=== PATIENT | male | born 1965 | race Caucasian/White ===

== ENCOUNTER 2020-12-31 08:34 | Day surgery (SDC) | payer MEDICARE, MEDICAID ==
[2020-12-31] MEDS ORDERED: Depo-Medrol 40 MG/ML IM ONE (08:35)
[2020-12-31] MEDS ORDERED: LIDOCAINE HCL 2% 100 MG/5 ML IJ ONE (08:35)
[2020-12-31] MEDS ORDERED: DIPRIVAN 200 MG/20 ML IV ONE (09:44)
--- NOTE | 2020-12-31 11:32 | XRAY ---
Indication: Bilateral L4-S1 MBB. Intraoperative fluoroscopy provided for 16 seconds. Single digital spot image submitted for interpretation demonstrates posterior needle tips projecting over the expected left and right L4-S1 nerve roots. Correlate with intraoperative findings/report. Incidental bilateral L4-S1 facet screws.
--- NOTE | 2020-12-31 11:40 | XRAY ---
16 seconds fluoroscopy time in surgery for bilateral L4-S1 MBB
[2020-12-31] MEDS ORDERED: Lactated Ringers 1,000 ML IV ONE (11:41)
== END 2020-12-31 10:17 | disposition home or self-care (01) ==
LOC: SDC-PAIN 08:34
PROVIDERS: ATTEND Psychiatry & Neurology Pain Medicine
DX: M47.816 Spondylosis without myelopathy or radiculopathy, lumbar region (principal); E11.319 Type 2 diabetes mellitus with unspecified diabetic retinopathy without macular edema; Z79.899 Other long term (current) drug therapy
CPT/HCPCS: 64493; 64494; 72020; 77002; 82947; J1030; J2704

== ENCOUNTER 2021-02-11 09:54 | Day surgery (SDC) | payer MEDICARE, MEDICAID ==
[2021-02-11] MEDS ORDERED: Depo-Medrol 40 MG/ML IM ONE (09:55)
[2021-02-11] MEDS ORDERED: BUPIVACAINE 0.5% VIAL IJ ONE (09:55)
[2021-02-11] MEDS ORDERED: DIPRIVAN 200 MG/20 ML IV ONE (10:39)
[2021-02-11] MEDS ORDERED: Lactated Ringers 1,000 ML IV ONE (10:42)
--- NOTE | 2021-02-11 13:39 | XRAY ---
16 seconds of fluoroscopy was used in surgery for a bilateral L4-S1 MBB.
== END 2021-02-11 11:15 | disposition home or self-care (01) ==
LOC: SDC-PAIN 09:54
PROVIDERS: ATTEND Psychiatry & Neurology Pain Medicine
DX: M47.816 Spondylosis without myelopathy or radiculopathy, lumbar region (principal); E11.9 Type 2 diabetes mellitus without complications; Z79.899 Other long term (current) drug therapy
CPT/HCPCS: 64493; 64494; 72020; 77002; 82947; J1030; J2704